=== PATIENT | male | born 1970 | race Caucasian/White ===

== ENCOUNTER 2022-01-03 06:51 | Day surgery (SDC) | payer BC ==
[2022-01-01 13:16] VITALS: BMI 47.9
[~2022-01-03 06:51] MED LIST: LACTATED RINGERS 1,000 ML IV SCH; LIDOCAINE 1% (10MG/ML) FOR IV START INTRADERMA PRN
[2022-01-03 07:20] VITALS: RESP 16; TEMP 97
[2022-01-03 07:24] LABS: Glucose,Whole Blood 127 mg/dL (75-99)
[2022-01-03] MEDS ORDERED: PROPOFOL 10 MG/ML 20 ML VIAL IV ONE (08:05)
[2022-01-03] MEDS ORDERED: LIDOCAINE 1% INJ 10MG/ML (20 ML MDV) ONE (08:05)
--- NOTE | 2022-01-03 08:31 | P.PCN ---
Date of Procedure: 01/03/22 Procedure(s) Performed: BRIEF HISTORY: Patient is a 51-year-old pleasant white male scheduled for an elective colonoscopy as a part of screening for colorectal neoplasia. PROCEDURE PERFORMED: Colonoscopy with biopsy. PREOPERATIVE DIAGNOSIS: Screening for colon cancer. IV sedation per Anesthesia. PROCEDURE: After informed consent was obtained, the patient, was brought into the endoscopy unit. IV sedation was administered by Anesthesia under continuous monitoring. Digital rectal examination was normal. Initially the Olympus CF-160 flexible video colonoscope was then inserted in the rectum, gradually advanced into the cecum without any difficulty. Careful examination was performed as the scope was gradually being withdrawn. Ileocecal valve and the appendiceal orifice were visualized and appeared normal. Prep was excellent. Mucosa of the cecum, adequately millimeters sessile polyp that was removed by cold biopsy. Rest of the ascending colon, transverse colon, descending colon, sigmoid colon, and rectum appeared normal. Retroflexion was performed in the rectum and no lesions were seen. The patient tolerated the procedure well. IMPRESSION: 3 mm cecal polyp status post cold biopsy Rest of the colon appeared normal RECOMMENDATIONS: Findings of this examination were discussed with the patient as well as his family. He was advised to follow with the biopsy results. If the biopsy reveals adenoma he can have a repeat colonoscopy in 5 years..
[2022-01-03 09:00] VITALS: BP 110/77; PULSE 72
== END 2022-01-03 09:13 | disposition home or self-care (01) ==
LOC: ORWHC2ENDO 06:51
PROVIDERS: ATTEND Internal Medicine Gastroenterology
DX: Z12.11 Encounter for screening for malignant neoplasm of colon (principal); K63.5 Polyp of colon
CPT/HCPCS: 45380; 88305; J2001; J2704

== ENCOUNTER → 2023-01-30 | Outpatient (CLI) | payer BC ==
--- NOTE | 2023-01-30 20:03 | CA ---
Transthoracic Echo Report Name: Jimbo Melo Age: 52 Gender: M : 1970 Exam Date: 01/30/2023 14:00 Exam Location: [place] [facility] Ht (in): 67 Wt (lb): 320 Ordering Physician: Isabela Kaplan DO Attending/Referring Phys: Tree Inspector Vaishnavi Flores RDCS Procedure CPT: Indications: R42 I10 Cardiac Hx: Technical Quality: Technically difficult study Contrast 1: Lumason Total Dose (mL): 4 Contrast 2: Total Dose (mL): MEASUREMENTS (Male / Female) Normal Values 2D ECHO LV Diastolic Diameter PLAX 4.3 cm 4.2 - 5.9 / 3.9 - 5.3 cm LV Systolic Diameter PLAX 2.8 cm IVS Diastolic Thickness 1.5 cm 0.6 - 1.0 / 0.6 - 0.9 cm LVPW Diastolic Thickness 1.4 cm 0.6 - 1.0 / 0.6 - 0.9 cm LV Relative Wall Thickness 0.7 LA Volume 92.3 cm??? 18 - 58 / 22 - 52 cm??? M-MODE Aortic Root Diameter MM 3.1 cm LA Systolic Diameter MM 4.2 cm LA Ao Ratio MM 1.4 DOPPLER AV Peak Velocity 135.1 cm/s AV Peak Gradient 7.3 mmHg AV Mean Velocity 98.5 cm/s AV Mean Gradient 4.2 mmHg AV Velocity Time Integral 23.6 cm LVOT Peak Velocity 113.3 cm/s LVOT Peak Gradient 5.1 mmHg LVOT Velocity Time Integral 22.0 cm MV Area PHT 3.8 cm??? Mitral E Point Velocity 73.7 cm/s Mitral A Point Velocity 63.9 cm/s Mitral E to A Ratio 1.2 MV Deceleration Time 200.1 ms MV E' Velocity 6.7 cm/s Mitral E to MV E' Ratio 11.0 TR Peak Velocity 160.9 cm/s TR Peak Gradient 10.4 mmHg FINDINGS Left Ventricle Moderately increased left ventricular wall thickness. Left ventricular cavity size normal. Normal left ventricular systolic function with no obvious regional wall motion abnormalities. Left ventricular ejection fraction is estimated at 55-60 %. Right Ventricle Normal right ventricular size and function. Right ventricular systolic pressure within normal limits. Right Atrium Normal right atrial size. Left Atrium Moderatly increased left atrial volume. Mildly increased left atrial area. Mitral Valve Structurally normal mitral valve. Trace to mild mitral regurgitation. Aortic Valve No aortic valve stenosis or regurgitation. Tricuspid Valve Trace to mild tricuspid regurgitation. Pulmonic Valve Trace pulmonic regurgitation. Pericardium No pericardial effusion. Echo free space anterior to the right ventricle likely represents a fat pad. Aorta Normal size aortic root and proximal ascending aorta. CONCLUSIONS LVH with preserved systolic function and left atrial enlargement Previewed by: Dr. Phan Dnoato MD (Electronically Signed) Final Date: 30 January 2023 20:02
== END | disposition home or self-care (01) ==
LOC: RADECHMAIN 13:49
PROVIDERS: ATTEND Family Medicine
DX: R42 Dizziness and giddiness (principal); I10 Essential (primary) hypertension; R55 Syncope and collapse; I51.7 Cardiomegaly
CPT/HCPCS: 93306; Q9950

== ENCOUNTER → 2023-02-11 | Outpatient (CLI) | payer BC ==
--- NOTE | 2023-02-11 15:42 | US ---
EXAMINATION TYPE: US carotid duplex BILAT DATE OF EXAM: 02/11/2023 COMPARISON: NONE CLINICAL INDICATION: Male, 52 years old with history of R42 DIZZINESS AND GIDDINESS; Dizziness. TECHNIQUE: Carotid duplex ultrasound examination. Indirect Doppler criteria was utilized. FINDINGS: EXAM MEASUREMENTS: RIGHT: Peak Systolic Velocity (PSV) cm/sec ----- Right CCA: 83.9 ----- Right ICA: 109 ----- Right ECA: 181 ICA/CCA ratio: 1.3 RIGHT: End Diastole cm/sec ----- Right CCA: 24.2 ----- Right ICA: 29.2 ----- Right ECA: 27.4 LEFT: Peak Systolic Velocity (PSV) cm/sec ----- Left CCA: 97.5 ----- Left ICA: 116 ----- Left ECA: 180 ICA/CCA ratio: 1.19 LEFT: End Diastole cm/sec ----- Left CCA: 28.6 ----- Left ICA: 30.4 ----- Left ECA: 25.2 VERTEBRALS (direction of flow): Right Vertebral: Antegrade Left Vertebral: Antegrade Rhythm: Normal SET UP MOLD TECHNICIAN NOTES: *Elevated velocities within bilateral ECAs. Plaque seen within bilateral bulbs and bifurcations. It was difficult to follow bilateral ICAs distally. Very limited exam due to tortuou s ICAs. IMPRESSION: 1. Increased velocities within the bilateral ECAs suggesting probably moderate underlying stenoses. 2. While there is atherosclerotic change at the bilateral proximal ICAs, measurements do not suggest a hemodynamically significant proximal ICA stenosis on either side. Criteria for Assigning % of Stenosis / Diameter reduction (Estimation based on the indirect measurements of the internal carotid artery velocities (ICA PSV). 1. Normal (no stenosis)=ICA PSV < 125 cm/s: ratio < 2.0: ICA EDV<40 cm/s. 2. Less than 50% stenosis=ICA PSV < 125 cm/s: ratio < 2.0: ICA EDV<40 cm/s. 3. 50 to 69% stenosis=ICA PSV of 125 to 230 cm/s: ration 2.0 ? 4.0: ICA EDV 40-100 cm/s. 4. Greater than 70% stenosis to near occlusion= ICA PSV > 230 cm/s: ratio > 4.0: ICA EDV > 100 cm/s. 5. Near occlusion= ICA PSV velocities may be low or undetectable: variable ratio and ICA EDV. 6. Total occlusion=unable to detect flow.
== END | disposition home or self-care (01) ==
LOC: RADUSWWP 10:53
PROVIDERS: ATTEND Family Medicine
DX: I65.23 Occlusion and stenosis of bilateral carotid arteries (principal); R42 Dizziness and giddiness
CPT/HCPCS: 93880

== ENCOUNTER → 2024-06-23 | Outpatient (CLI) | payer BC ==
--- NOTE | 2024-06-23 11:51 | CT ---
EXAMINATION TYPE: CT abdomen pelvis wo con DATE OF EXAM: 06/23/2024 HISTORY: Lt flank pain CT DLP: 1595.4 mGycm. Automated Exposure Control for Dose Reduction was Utilized. TECHNIQUE: CT scan of the abdomen and pelvis is performed without oral or IV contrast. COMPARISON: FINDINGS: Within the limitations of a non-contrast study, the following observations are made. Tiny subpleural micronodule likely calcified right lower lobe representing granuloma. Reference image 38 s eries 3. LUNG BASES: No significant abnormality is appreciated. LIVER/GB: No significant abnormality is appreciated. PANCREAS: No significant abnormality is seen. SPLEEN: No significant abnormality is seen. ADRENALS: No significant abnormality is seen. KIDNEYS: Moderate to severe hydronephrosis on the left with a 8 mm left UVJ calculus. There is additi onal multiple) approximately 8) calcifications involving the lower pole left kidney. Largest measures approximately 8 mm. There is an indeterminate exophytic mid to lower pole right renal lesion most likely related to a cys t measuring 17 Hounsfield units. This is incompletely evaluated by noncontrast CT scan. BOWEL: No significant abnormality is seen. LYMPH NODES: No greater than 1cm abdominal or pelvic lymph nodes are appreciated. OSSEOUS STRUCTURES: Degenerative changes of the spine. Bilateral hip arthropathy. SI joint arthropath y.. OTHER: Atherosclerotic change aorta. IMPRESSION: 1. Severe left hydronephrosis with left UVJ\bladder calculus measuring 8 mm. 2. Additional nonobstructing left-sided nephrolithiasis. 3. Indeterminate right renal lesion incompletely evaluated by noncontrast technique. Recommend follow -up ultrasound.
--- NOTE | 2024-06-23 11:53 | US ---
EXAMINATION TYPE: US abdomen complete DATE OF EXAM: 06/23/2024 COMPARISON: CT same day CLINICAL INDICATION: Male, 53 years old with history of R10.11 RIGHT UPPER QUADRANT PAIN R94.4 ABNORM AL RE; TECHNIQUE: Multiple sonographic images of the abdomen are obtained. FINDINGS: EXAM MEASUREMENTS: Liver Length: 17.8 cm Gallbladder Wall: 0.3 cm CBD: 0.5 cm Spleen: 11.4 cm Right Kidney: 12.5 x 7.0 x 5.8 cm Left Kidney: 13.1 x 7.1 x 6.3 cm Difficult and limited study due to patient body habitus Pancreas: obscured by overlying midline bowel gas Liver: measures in upper limits of normal, attenuating, heterogeneous Gallbladder: wnl Evidence for sonographic Starr's sign: no CBD: visualized portions wnl, limited by overlying bowel gas Spleen: wnl Right Kidney: 2.1 cm right renal lesion seen by CT scan is not as well seen by ultrasound. Left Kidney: hydronephrosis, 1.0cm hyperechoic area inferior pole Upper IVC: wnl Abd Aorta: visualized portions wnl, limited by overlying midline bowel gas IMPRESSION: 1. Moderate to severe left hydronephrosis with associated nephrolithiasis. CT same day scan demonstra ralph left hydroureter to the level of the left UVJ. There is an 8 mm left UVJ apex/bladder calculus. 2. Ultrasound does not demonstrate the right renal lesion which measures [address] sc an. Favor this represents a Bosniak classification 2 benign cyst but would recommend additional fady p with MRI. 3. Nonspecific pattern of liver can be seen with underlying hepatocellular disease or hepatic steatos is.
== END | disposition home or self-care (01) ==
LOC: RADUSWWP 07:03
PROVIDERS: ATTEND Family Medicine
DX: N13.2 Hydronephrosis with renal and ureteral calculous obstruction (principal); R94.4 Abnormal results of kidney function studies
CPT/HCPCS: 74176; 76700

== ENCOUNTER → 2024-07-12 | Outpatient (CLI) | payer BC ==
[2024-07-12 14:40] LABS: African American GFR (CKD) >90 (>60 ml/min/1.73 sqM); Blood Urea Nitrogen 20 mg/dL (9-20); Non-African American GFR(CKD) >90 (>60 ml/min/1.73 sqM)
--- NOTE | 2024-07-12 16:16 | CT ---
EXAMINATION TYPE: CT abdomen pelvis wo/w con DATE OF EXAM: 07/12/2024 COMPARISON: 06/23/2024 INDICATION: Renal mass/kidney stones x1 year DLP: 3570.2 mGycm, Automated exposure control for dose reduction was used. CONTRAST: 100ml mL of Isovue 300. Study performed with Oral Contrast TECHNIQUE: Axial images were obtained from above the diaphragm to the pubic rami in the axial plane a t 5 mm thick sections. Reconstructed images are reviewed on the computer in the coronal plane. FINDINGS: Limited CT sections are obtained the lung bases. The lung bases are clear. CT ABDOMEN: Liver: Normal Spleen: Normal Pancreas: Normal Adrenal glands: The adrenal glands are normal. Gallbladder: Normal Kidneys: No masses are evident. No hydronephrosis is present. There is a hypodense area within the anterior right mid kidney measuring 2.6 cm 29 Hounsfield units. Several calcifications are at the inf erior pole left kidney. These are nonobstructing and measures 0.5, 1.1-0.5 cm size. Delayed images w ere obtained through the kidneys, which remain unremarkable. Aorta: Vascular calcification is within the aorta. Inferior vena cava: Normal. CT PELVIS: Loops of bowel within the abdomen and pelvis are normal. There are loops of bowel which are incom pletely distended or lack oral contrast limiting their evaluation. Appendix: Normal as visualized. Urinary bladder: Normal. Genitourinary structures: Mild prominence of the prostate is present Osseous structures: No suspicious lytic or sclerotic lesions. IMPRESSION: 1. Nonobstructing left mid and lower pole renal stones. 2. Hypodense area within the anterior right mid kidney measuring 2.3 cm 29 Hounsfield units. 3. Previous left hydronephrosis and hydroureter has resolved. Previous left ureteral vesicle junction calcification is absent [facility], Workstation: [facility], 07/12/2024 4:14 PM
== END | disposition home or self-care (01) ==
LOC: RADCTMAIN 13:56
PROVIDERS: ATTEND Urology
DX: D41.01 Neoplasm of uncertain behavior of right kidney
CPT/HCPCS: 36415; 74178; 82565; 84520

== ENCOUNTER 2024-08-02 10:21 | Day surgery (SDC) | payer BC ==
[2024-07-28 10:08] VITALS: BMI 48.6
--- NOTE | 2024-08-02 07:46 | P.HPIHPCON ---
History of Present Illness H&P Date: 08/02/24 Chief Complaint: Left renal stones This is a 53-year-old male with history of left-sided renal stones, he is having symptomatic left flank pain, underwent a CT abdomen and pelvis that showed 3 left renal stones largest measuring 1 cm all stones are located to the lower pole. Discussed with him option of ureteroscopy with holmium laser versus ESWL risk-benefit of each approach were discussed. He agreed to proceed with left- sided ureteroscopy with holmium laser, aware the risk which includes but not limited to bleeding, infection, injury to ureter, Consent for Procedure: I have explained the operation/procedure to the patient, including the risks, benefits, side effects, alternative therapies (including not receiving the proposed treatment or service), the likelihood of the patient achieving his/her goals, and potential recuperation problems for the procedure/sedation/analgesia, as well as any blood products, if indicated. I also explained to the patient the risks, benefits and side effects of the alternatives, as well as the risks r elated to not receiving the proposed procedure, care, treatment, or services. Past Medical History Past Medical History: Diabetes Mellitus, Hyperlipidemia, Hypertension Additional Past Medical History / Comment(s): KIDNEY STONES History of Any Multi-Drug Resistant Organisms: None Reported Additional Past Surgical History / Comment(s): nasal for polyps and deviated septum, lipoma removal, COLONOSCOPY Past Anesthesia/Blood Transfusion Reactions: No Reported Reaction Smoking Status: Former smoker, Vaper - Past Family History Mother Family Medical History: Cancer Father Family Medical History: Cancer Medications and Allergies Home Medications Medication Instructions Recorded Confirmed Type Metoprolol Succinate [Toprol XL] 25 mg PO DAILY 08/16/16 07/28/24 History Cholecalciferol (Vitamin D3) 50 mcg PO DAILY 07/28/24 07/28/24 History [Vitamin D3 (50 Mcg = 2000 Iu)] Insulin Glargine,Hum.rec.anlog 35 units SQ HS 07/28/24 07/28/24 History [Lantus Solostar Pen] Rosuvastatin [Crestor] 10 mg PO HS 07/28/24 07/28/24 History Tirzepatide [Mounjaro] 2.5 mg SQ FR 07/28/24 07/28/24 History ramipriL 10 mg PO DAILY 07/28/24 07/28/24 History Allergies Allergy/AdvReac Type Severity Reaction Status Date / Time cephalexin [From Keflex] Allergy Rash/Hives Verified 07/28/24 09:52 Surgical - Exam - General no distress, moderate pain - Eyes normal ocular movement, no pale - ENT normal nares, normal mucosa - Respiratory normal expansion, normal respiratory effort - Abdomen Abdomen: soft, non tender Assessment and Plan Assessment: OR for left-sided ureteroscopy, holmium laser lithotripsy, stone basketing and stent insertion
[~2024-08-02 10:21] MED LIST changes: +HYDROmorphone 0.5 MG/0.5 ML SYRINGE IVP PRN; -LACTATED RINGERS 1,000 ML IV SCH; +fentaNYL (PF) 50 MCG/ML 2 ML AMP IV PRN
--- NOTE | 2024-08-02 10:41 | XR ---
EXAMINATION TYPE: XR KUB DATE OF EXAM: 08/02/2024 HISTORY: Pain Comparison: None.Single KUB is submitted for interpretation. Findings: Right renal calculi: None Visualized. Right ureteral calculi: None Visualized. Left renal calculi: Multiple calculi noted overlying the lower pole of the left kidney measuring up to 1.2 cm. Left ureteral calculi: None Visualized. Pelvic calcifications: Yes Bowel gas pattern is unremarkable. No free air. No mass effects. IMPRESSION: 1. Multiple calculi noted overlying the lower pole of the left kidney measuring up to 1.2 cm. [facility], , 08/02/2024 10:39 AM
[2024-08-02 11:03] VITALS: TEMP 97
[2024-08-02] MEDS: DEXAMETHASONE SOD PHOSPHATE 4 MG/ML 1 ML VIAL IV ONE (11:06)
[2024-08-02] MEDS: IV FLUID CONTINUATION 1,000 ML IV ONE ×2 (11:06→12:40)
[2024-08-02] MEDS: ONDANSETRON 4 MG/2 ML VIAL IVP ONE (11:06)
[2024-08-02] MEDS: LACTATED RINGERS 1,000 ML IV SCH (11:06)
[2024-08-02 11:22] LABS: Glucose,Whole Blood 136 mg/dL (70-110)
[2024-08-02] MEDS ORDERED: SUCCINYLCHOLINE CHLORIDE 200 MG/10 ML VIAL IV ONE (12:04)
[2024-08-02] MEDS ORDERED: PROPOFOL 10 MG/ML 20 ML VIAL IV ONE (12:04)
[2024-08-02] MEDS ORDERED: PHENYLEPHRINE 10 MG/ML VIAL ONE (12:04)
[2024-08-02] MEDS ORDERED: LIDOCAINE 1% INJ 10MG/ML (20 ML MDV) ONE (12:04)
[2024-08-02] MEDS ORDERED: MIDAZOLAM 2 MG/2 ML VIAL ONE (12:04)
[2024-08-02] MEDS ORDERED: ePHEDrine 50 MG/ML 1 ML VIAL ONE (12:04)
[2024-08-02] MEDS ORDERED: fentaNYL (PF) 50 MCG/ML 2 ML AMP ONE (12:04)
[2024-08-02] MEDS: CIPROFLOXACIN/DEXTROSE PMX 400 MG in DEXTROSE/WATER 1 200ML.BAG IVPB PRN (12:06)
--- NOTE | 2024-08-02 13:06 | FL ---
Fluoroscopy History: Cysto for left kidney stone LC 15 sec fluoro time 3.4535 DAP [facility], , 08/02/2024 1:04 PM
[2024-08-02 13:08] LABS: Glucose,Whole Blood 150 mg/dL (70-110)
--- NOTE | 2024-08-02 13:20 | P.OP ---
Date of Procedure: 08/02/24 Preoperative Diagnosis: Left renal stone Postoperative Diagnosis: Same Procedure(s) Performed: Cystoscopy, left ureteroscopy, holmium lithotripsy, stone basketing and stent insertion Implants: 6 Peruvian by 26 cm stent in the left ureter left on a string Anesthesia: RUTH ANN Surgeon: Manuel Fregoso Estimated Blood Loss (ml): 5 Pathology: other (Left renal stone) Condition: stable Disposition: PACU Indications for Procedure: This is a 53-year-old male with history of left-sided renal stones, he is having symptomatic left flank pain, underwent a CT abdomen and pelvis that showed 3 left renal stones largest measuring 1 cm all stones are located to the lower pole. Discussed with him option of ureteroscopy with holmium laser versus ESWL risk-benefit of each approach were discussed. He agreed to proceed with left- sided ureteroscopy with holmium laser, aware the risk which includes but not limited to bleeding, infection, injury to ureter, Operative Findings: Multiple left lower pole renal stones including 2 large stones Description of Procedure: Patient brought to the operating room, general anesthesia was induced. He was prepped and draped in sterile fashion and placed in a dorsolithotomy position. Cystoscopy fitted with 21 Peruvian sheath was inserted per urethra, cystoscopy was performed which showed no abnormality within the bladder attention was then carried to the left ureteral orifice, a sensor wire was advanced under fluoroscopy into the kidney, next under fluoroscopy and 1113 Peruvian access sheath was passed over the wire and into the proximal ureter. Next the ureteroscope was inserted through the access sheath, renoscopy was performed which showed to large stones in the lower pole and multiple small stones. Using the stone basket all the small stones were grasped and removed. The 2 larger stones were broken up using the holmium laser, the stone fragments were removed using a stone basket. Repeat renoscopy showed no injury to the kidney or any sizable fragments, pullback ureteroscopy was performed showed no injury to the ureter or any ureteral stones, as the ureteroscope was withdrawn a sensor wire was advanced through. Next the ureteral stent was passed over the wire, the proximal curl was visualized on fluoroscopy and the distal curl was resides using the cystoscope. The stent was left on a string and taped to the patient penis. Patient tolerated procedure well sent recovery in stable condition
[2024-08-02 13:40] VITALS: RESP 16
[2024-08-02 14:06] VITALS: BP 118/75; PULSE 76
== END 2024-08-02 14:34 | disposition home or self-care (01) ==
LOC: OR 10:21
PROVIDERS: ATTEND Urology
CPT/HCPCS: 74018; 82365